=== PATIENT | female | born 1980 | race Caucasian/White ===

== ENCOUNTER 2017-05-10 17:06 | Observation (INO) | payer OTHER ==
[~2017-05-10] VITALS: Ht 172.7 cm; Wt 88.0 kg
[~2017-05-10 17:06] MED LIST: ALPR0.25 PO; BIRTH CONTROL; FLUO10CA13 PO; OXYC-302 PO; POLY17PO5 PO
[2017-05-10 17:34] LABS: HEMATOCRIT 41.7 % (34.6-47.8); HEMOGLOBIN 13.9 g/dL (11.7-16.4); WHITE BLOOD COUNT 7.6 x10^3/uL (3.4-10)
[2017-05-10] MEDS ORDERED: CYMBALTA (17:39)
[2017-05-10] MEDS ORDERED: ESOM20CA PO (17:39)
[2017-05-10 17:44] LABS: ACETAMINOPHEN 8 mcg/mL (10-30); ASPARTATE AMINO TRANSFERASE 14 U/L (15-37); BLOOD UREA NITROGEN 8 mg/dL (7-18)
[2017-05-10] MEDS ORDERED: BISACODYL 10 MG SUPP PR PRN (20:00)
[2017-05-10] MEDS ORDERED: POLYETHYLENE GLYCOL 17 GM PACKET PO PRN (20:00)
[2017-05-10] MEDS ORDERED: ONDANSETRON ODT 4 MG PO PRN (20:00)
[2017-05-10 23:02] LABS: DAU SCREEN DISCLAIMER
[2017-05-11 00:01] VITALS: BP 133/87
[2017-05-11 07:56] VITALS: BP 111/76
[2017-05-11] MEDS ORDERED: SENNA/DOCUSATE TABLET PO SCH (09:00)
[2017-05-11 20:00] VITALS: BP 116/77
[2017-05-11] MEDS ORDERED: NITROFURANTOIN (MACROBID) 100 MG CAPSULE PO SCH (21:00)
== END 2017-05-11 21:40 ==
LOC: ED 18:36 → EDIP 19:28 → 3E 23:33
PROVIDERS: ADMIT Internal Medicine; ATTEND Internal Medicine
DX: T42.4X2A Poisoning by benzodiazepines, intentional self-harm, initial encounter (principal); T40.2X2A Poisoning by other opioids, intentional self-harm, initial encounter; T43.212A Poisoning by selective serotonin and norepinephrine reuptake inhibitors, intentional self-harm, initial encounter; T45.0X2A Poisoning by antiallergic and antiemetic drugs, intentional self-harm, initial encounter; N39.0 Urinary tract infection, site not specified; F32.9 Major depressive disorder, single episode, unspecified; F10.10 Alcohol abuse, uncomplicated; Y92.89 Other specified places as the place of occurrence of the external cause; Z90.49 Acquired absence of other specified parts of digestive tract
CPT/HCPCS: 36415; 80053; 80307; 80329; 81001; 84703; 85025; 87086; 93005; 99285; G0378; G0479; G0480